=== PATIENT | male | born 1960 | race Hispanic/Latino ===

== ENCOUNTER → 2018-03-19 | Outpatient (CLI) | payer OTHER ==
--- NOTE | 2018-03-19 15:12 | Diagnostic Imaging Report ---
History: Fell while pulling a chair. Neck and left arm pain Comparison studies: None Technique: Sagittal T1, T2 and IR, axial T2 and axial gradient echo Intravenous contrast: None Findings: Alignment: Normal lordosis. No scoliosis. Cervicomedullary junction: No abnormalities. Patent foramen magnum. Soft tissues: No T2 hyperintense inflammatory changes. Spinal cord: Normal in size and signal from the foramen magnum through T4 Vertebrae: Normal in height and signal intensity. No fractures, infection or neoplasm. Degenerative changes: Mild disc degeneration with loss of T2 signal without endplate changes C2-C3: Central superiorly migrated disc osteophyte complex with patent canal and foramina C3-C4: No abnormalities. C4-C5: Patent canal and foramina C5-C6: Left uncinate process hypertrophy with patent canal and mild left foraminal narrowing C6-C7: Left uncinate process hypertrophy with patent canal and mild left foraminal narrowing C7-T1: Patent canal and foramina. Left extraforaminal 4 mm perineural cyst. IMPRESSION: 1. No acute cervical abnormality. 2. Mild degenerative left foraminal narrowing at C5-6 and C6-7. The remaining canal and foramina are patent. Other degenerative changes as described above. Signed by: DR Samir Naranjo M.D. on 03/19/2018 3:08 PM
== END ==
LOC: MRI 09:06
PROVIDERS: ATTEND Internal Medicine
DX: M47.22 Other spondylosis with radiculopathy, cervical region (principal)
CPT/HCPCS: 72141

== ENCOUNTER → 2019-11-29 | Day surgery (SDC) | payer OTHER ==
[~2019-11-29] MED LIST: ALLERGY RELIEF10 M4 PO; ATORVASTATIN CA10 MG PO; BROMPHENIR-PSE118 ML PO; BRYHALI100 GM TOP; CRESTOR10 MG PO; FENTANYL CITRATE/PF 100MCG/2 ML INJ ONE; HYOSCYAMINE 0.125 MG TAB ONE; KETAMINE HCL INJ 50 MG/ML 10 ML VIAL ONE; LEVAQUIN500 MG PO; LISINOPRIL2.5 MG PO; MIDAZOLAM HCL 2 MG/2 ML VIAL ONE; PROPOFOL IV EMULSION 10 MG/ML 50 ML VIAL ONE; [UNRECOGNIZED DRUG - OTHER] PO
--- OUTSIDE RECORDS SUMMARY | 2019-11-29 07:28 | XMS REPORT ---
[facility] Address Unknown Phone Unavailable Care Team Providers Care Search Engineer Name Role Phone Mariluz TINOCO Unavailable Unavailable Problems This patient has no known problems. Allergies, Adverse Reactions, Alerts This patient has no known allergies or adverse reactions. Medications This patient has no known medications. Results Test Description Test Time Test Comments Text Results Atomic Results Result Comments MRI SPINE CERVICAL WO [place] [address] Patient Name: ROBERTO MCLAUGHLIN MR #: [id number] : 1960 Age/Sex: 57/M Req #: [id number] Adm Physician: Ordered by: HU TINOCO MD Report #: [id number] Location: MRI Room/Bed: Procedure: [id number] MRI/MRI SPINE CERVICAL WO Exam Date: Exam Time: REPORT STATUS: Signed History: Fell while pulling a chair. Neck and left arm pain Comparison studies: None Technique: Sagittal T1, T2 and IR, axial T2 and axial gradient echo Intravenous contrast: None Findings: Alignment: Normal lordosis. No scoliosis. Cervicomedullary junction: No abnormalities. Patent foramen magnum. Soft tissues: No T2 hyperintense inflammatory changes. Spinal cord: Normal in size and signal from the foramen magnum through T4 Vertebrae: Normal in height and signal intensity. No fractures, infection or neoplasm. Degenerative changes: Mild disc degeneration with loss of T2 signal without endplate changes C2-C3: Central superiorly migrated disc osteophyte complex with patent canal and foramina C3-C4: No abnormalities. C4-C5: Patent canal and foramina C5-C6: Left uncin ate process hypertrophy with patent canal and mild left foraminal narrowing C6-C7: Left uncinate process hypertrophy with patent canal and mild left foraminal narrowing C7-T1: Patent canal and foramina. Left extraforaminal 4 mm perineural cyst. IMPRESSION: 1. No acute cervical abnormality. 2. Mild degenerative left foraminal narrowing at C5-6 and C6- 7. The remaining canal and foramina are patent. Other degenerative changes as described above. Signed by: DR Samir Naranjo M.D. on 03/19/2018 3:08 PM Dictated By: SAIMR DUNN MD [id number] Transcribed By: VIDA on 03/19/18 [id number] COPY TO: HU TINOCO MD
--- NOTE | 2019-11-29 19:29 | Operative Report ---
DATE OF PROCEDURE: 11/29/2019 SURGEON: Jaquan Wong MD REFERRING PHYSICIAN: Rosie Whitman PROCEDURE: Colonoscopy and polypectomy. INDICATION FOR PROCEDURE: Colorectal cancer screening. MEDICATIONS: The patient was done under MAC, please see anesthesiologist's note. PROCEDURE IN DETAIL: With the patient in left lateral decubitus position, flexible fiberoptic Olympus colonoscope was inserted into the rectum with ease and advanced all the way to the cecum. The scope was then withdrawn slowly and mucosa overlying the cecum. Ascending colon and transverse colon appeared to be within normal limits. Mucosa overlying the descending colon also was unremarkable. A minute polyp was removed per hot biopsy forceps in the proximal sigmoid colon. Some diverticular disease was noted in the sigmoid colon. The rectum appeared to be within normal limits. The scope was then retroflexed into the distal rectum and small internal hemorrhoids were noted, none of which was actively bleeding. The scope was then straightened out and was subsequently withdrawn. A healed anal fissure was noted on the way out without active bleeding. The patient tolerated procedure well. IMPRESSION: 1. Sigmoid colon polyp, hot biopsied. 2. Diverticulosis. 3. Internal hemorrhoids, none actively bleeding. 4. Anal fissure, healed. PLAN: Follow up histology. Initiate high-fiber, low-fat diet. Initiate high-fiber supplement. Anucort-HC suppositories b.i.d. x10 days and p.r.n. The patient might benefit from a followup colonoscopy in 3 to 5 years. Jaquan Wong MD [facility] [place] [facility] [place][id number] cc: Mary Ellen Whitman
== END | disposition home or self-care (01) ==
LOC: OR 07:25
PROVIDERS: ATTEND Internal Medicine Gastroenterology
DX: Z12.11 Encounter for screening for malignant neoplasm of colon (principal); K63.5 Polyp of colon; K57.30 Diverticulosis of large intestine without perforation or abscess without bleeding; K64.8 Other hemorrhoids; K64.4 Residual hemorrhoidal skin tags; K21.9 Gastro-esophageal reflux disease without esophagitis; I10 Essential (primary) hypertension; E78.5 Hyperlipidemia, unspecified; E03.9 Hypothyroidism, unspecified; F10.10 Alcohol abuse, uncomplicated; Z68.28 Body mass index [BMI] 28.0-28.9, adult
CPT/HCPCS: 45384; J2250; J2704; J3010

== ENCOUNTER → 2021-06-17 | Day surgery (SDC) | payer OTHER ==
[2021-06-14 13:22] LABS: BASOPHILS % 0.6 % (0.0-1.0); EOSINOPHILS # (AUTO) 0.1 (0.0-0.4); EOSINOPHILS % 1.2 % (0.0-6.0); HEMATOCRIT 41.7 % (38.2-49.6); HEMOGLOBIN 12.9 g/dL (14.0-18.0); LYMPHOCYTES # (AUTO) 1.4 (1.0-3.2); LYMPHOCYTES % 20.4 % (18.0-39.1); MEAN CORPUSCULAR HEMOGLOBIN 28.1 pg (28-32); MEAN CORPUSCULAR HGB CONC 30.9 g/dL (31-35); MEAN CORPUSCULAR VOLUME 90.8 fL (81-99); MONOCYTES # (AUTO) 0.4 (0.2-0.8); MONOCYTES % 6.5 % (4.4-11.3); NEUTROPHILS # (AUTO) 4.9 (2.1-6.9); NEUTROPHILS % 71.2 % (38.7-80.0); PLATELET COUNT 201 x10e3/uL (140-360); RED BLOOD COUNT 4.59 x10e6/uL (4.3-5.7); RED CELL DISTRIBUTION WIDTH 12.9 % (11.7-14.4)
[2021-06-14 13:39] LABS: ANION GAP 14.4 mmol/L (8-16); CALCIUM 9.2 mg/dL (8.4-10.2); CREATININE, SERUM 1.03 mg/dL (0.72-1.25); POTASSIUM 4.4 mmol/L (3.5-5.1)
[~2021-06-17] MED LIST changes: +BUPIVACAINE 0.25% 30ML SDV ONE; -FENTANYL CITRATE/PF 100MCG/2 ML INJ ONE; +HYDROGEN PEROXIDE 120 ML BTL ONE; -HYOSCYAMINE 0.125 MG TAB ONE; -KETAMINE HCL INJ 50 MG/ML 10 ML VIAL ONE; +LIDOCAINE 1% W/EPINEPHRINE 20 ML VIAL ONE; +LIDOCAINE HCL 2% JELLY 5 ML TUBE ONE; +LISINOPRIL10 MG PO; -MIDAZOLAM HCL 2 MG/2 ML VIAL ONE; +MUPIROCIN 2% OINT 22 GM TUBE ONE; -PROPOFOL IV EMULSION 10 MG/ML 50 ML VIAL ONE
[2021-06-17 11:20] VITALS: BP 150/86
== END | disposition home or self-care (01) ==
LOC: OR 06:24
PROVIDERS: ATTEND Surgery
DX: K60.1 Chronic anal fissure (principal); K64.8 Other hemorrhoids; I10 Essential (primary) hypertension; E78.5 Hyperlipidemia, unspecified; R00.1 Bradycardia, unspecified; E07.9 Disorder of thyroid, unspecified; Z01.810 Encounter for preprocedural cardiovascular examination; Z01.812 Encounter for preprocedural laboratory examination; Z20.822 Contact with and (suspected) exposure to COVID-19; Z85.828 Personal history of other malignant neoplasm of skin; Z87.891 Personal history of nicotine dependence
CPT/HCPCS: 36415; 45300; 46255; 80048; 85025; 88304; 93005; J2001; U0002